=== PATIENT | female | born 1935 | race Caucasian/White ===

== ENCOUNTER 2024-04-08 10:14 | Outpatient (CLI) | payer MEDICARE, SELFPAY ==
[2024-04-08 10:51] LABS: Anion Gap 11 mmol/L (4-12); Blood Urea Nitrogen 27 mg/dL (7-17); Calcium 9.5 mg/dL (8.4-10.2); Carbon Dioxide 26 mmol/L (22-30); Chloride 102 mmol/L (98-107); Estimated Glomerular Filt Rate 47; Glucose 140 mg/dL (65-110); Potassium 4.7 mmol/L (3.4-5.0); Sodium 139 mmol/L (137-145)
[2024-04-08 11:00] LABS: INR 2.1; Partial Thromboplastin Time 33.2 Seconds (22.3-36.8); Prothrombin Time 23.5 Seconds (11.1-14.7)
== END 2024-04-08 10:15 | disposition home or self-care (01) ==
PROVIDERS: Anesthesiology; PCP Internal Medicine; Visit Provider Urology
DX: Z51.81 Encounter for therapeutic drug level monitoring (principal); E11.9 Type 2 diabetes mellitus without complications; Z79.899 Other long term (current) drug therapy
CPT/HCPCS: 36415; 80048; 85610; 85730

== ENCOUNTER 2024-04-10 00:50 | Day surgery (SDC) | payer MEDICARE, SELFPAY ==
--- NOTE | 2024-04-05 12:16 | PM.IMHP ---
H&P: HPI History of Present Illness Date/Time: 04/05/24 12:16 Chief Complaint: incontinence Narrative: mixed incontinence. ELISA 2/2 ISD prodominates Review of Systems Review of Systems: All systems reviewed & are unremarkable except as noted in HPI and below Exam Narrative: fixed urethra Assessment and Plan Assessment and plan (1) Intrinsic sphincter deficiency (ISD): Code(s): N36.42 - Intrinsic sphincter deficiency (ISD) Status: Acute Assessment and Plan: cysto/bulking agent
[2024-04-06 13:37] VITALS: BMI 40.0
--- NOTE | 2024-04-06 14:08 | PC.NURSE ---
Report to the Outpatient Waiting Room, entrance under the green pavilion located off [facility], at time __8:15AM on date ___04/10/24____. Planned Procedure Time: __10:15AM . Time changes happen often and if your time is changed the preop area will call you the afternoon before. - You and your visitor will be asked to self-screen and do not enter if you have any COVID symptoms. - A mask is optional within the hospital at this time. Patients may have clear liquids (water, carbonated beverages, clear teas, apple juice) until 3 hours prior to surgery with a maximum of 20 ounces. - No food from midnight until time of surgery. Take the following medications with a SIP of water the morning of surgery: ____ISORSORBIDE, LEVOTHYROXINE DO NOT STOP ANY OF YOUR OTHER PRESCRIPTION MEDICATIONS PRIOR TO SURGERY ?EXCEPT THE FOLLOWING Medications to discontinue per physician __HOLD COUMADIN & ASPIRIN 5 DAYS PRE-OP PER DR CRAIG(PER PATIENT) Date to take last dose____04/04/24 Please no make-up, nail burundian, hairspray, perfume, deodorant, or body powder the day of surgery. No jewelry (including any body piercings) or valuables the day of surgery, leave them at home. Please take a shower or bath the night before, or the morning of, surgery with an antibacterial soap. Wear comfortable, loose fitting clothing. - Jewelry must be removed prior to entering the operating room. Rings and piercings that are not removed may be cut off. - The hospital will not accept responsibility for valuables. - Please leave all valuables, including medications, at home the day of surgery. If you are going home after surgery, a licensed [place] driver must drive you home. - NO public transportation without another adult if you receive anesthesia. - We recommend that an adult stay with you for 24 hours following discharge. - We also recommend that you do not drive, make important decision, drink alcoholic beverages, or take any drugs that were not prescribed by your health care provider for at least 24 hours after your discharge time. Follow any additional instructions given to you from your surgeon. If you or anyone in your household have experienced Covid symptoms in the past week, please notify your surgeon or the nurse liaison at the phone number below for possible testing. Telephone instructions given to ____PATIENT and asked if any additional questions and then verbalized understanding. Patient advised to call surgeon office or pre surgery nurse liaison [phone] if any additional questions.
--- NOTE | 2024-04-09 12:10 | WPDANESEPPF ---
Anes - Initial Pre Proc Eval Procedure: Operation Date: 04/10/24 08:00 Proposed Procedures p Cystoscopy, Injection Bulking Agent - Juanito Koch MD Date/Time: 04/09/24 12:10 Surgeon: Juanito Koch MD Pre Op Diagnosis: overactive bladder, ID Patient Data Age: 89 Gender: F Height: 1.7 m Weight: 116 kg Allergies Allergy/AdvReac Type Severity Reaction Status Date / Time codeine AdvReac Headache, Verified 04/06/24 13:27 DIZZINESS Home Medications Medication Instructions Recorded Confirmed Type aspirin 81 mg tablet,delayed 81 mg PO DAILY 04/06/24 04/06/24 History release empagliflozin 10 mg tablet 10 mg PO DAILY 04/06/24 04/06/24 History (Jardiance) furosemide 40 mg tablet 40 mg PO QAM 04/06/24 04/06/24 History insulin regular human 100 unit/mL 10 unit subcut TID 04/06/24 04/06/24 History injection solution (Humulin R Regular U-100 Insulin) isosorbide mononitrate 30 mg 30 mg PO DAILY 04/06/24 04/06/24 History tablet,extended release 24 hr levothyroxine 150 mcg tablet 150 mcg PO QAM 04/06/24 04/06/24 History (Synthroid) metformin 500 mg tablet 500 mg PO BID 04/06/24 04/06/24 History potassium chloride 10 mEq 10 meq PO DAILY 04/06/24 04/06/24 History tablet,extended release(part/cryst) (Klor-Con M) rosuvastatin 10 mg tablet 10 mg PO DAILY 04/06/24 04/06/24 History solifenacin 10 mg tablet 10 mg PO DAILY 04/06/24 04/06/24 History valsartan 160 mg tablet 160 mg PO DAILY 04/06/24 04/06/24 History warfarin 1 mg tablet (Jantoven) 2 mg PO DAILY 04/06/24 04/06/24 History warfarin 3 mg tablet 3 mg PO DAILY 04/06/24 04/06/24 History Patient hx anesthesia problems: none Family hx anesthesia problems: none Results Review: All pre-operative results and documents have been reviewed as part of the pre-operative evaluation. [facility] Past Medical History Medical History (Updated 04/09/24 @ 12:11 by Luis Zapien DO) CAD (coronary artery disease) Diabetes type 2, controlled DVT (deep venous thrombosis) Hyperlipidemia Hypertension Hypothyroidism PVD (peripheral vascular disease) Surgical History Surgical History (Updated 04/09/24 @ 12:11 by Luis Zapien DO) History of coronary artery stent placement Social History Social History Smoking packs per day: 1 Smoking cigarettes per day: 20.0 Years smoked: 25 Smoking pack-years: 25.00 Smoking status: Former smoker Tobacco type: cigarettes Smoking end date: 02/16/95 Living arrangements: alone Spiritual care concerns: No Anes - Eval Final PreProcedure Day of Procedure 04/09/24 12:10 Patient weight: morbidly obese Heart: regular rate and rhythm Lungs: clear to auscultation Airway: Mallampati scale class II Neurological: alert and oriented Last oral intake: >/= 8 hours ASA classification: III Emergent: no Anesthetic plan: proceed Anesthesia type and monitoring: general GIVS and standard monitoring Results Review: All pre-operative results and documents have been reviewed as part of the pre-operative evaluation. Informed Consent: The patient's anesthetic plan and its attendant risks and benefits were discussed with the patient/family/POA. Questions were solicited and answers provided to the satisfaction of the patient/family/POA.
[2024-04-10 06:23] VITALS: BP 154/64; PULSE 40; RESP 20; TEMP 36.5; O2SAT 98
--- NOTE | 2024-04-10 07:16 | WPDHPUPDATE1 ---
History and Physical Update Update Date/Time: 04/10/24 07:16 History and Physical has been reviewed, including an updated exam of the patient. There are NO changes in the patient's condition. Risks, benefits, and alternatives have been discussed and questions answered. Patient agrees to proceed with procedure.
[2024-04-10 07:28] LABS: Glucose Point of Care 128 mg/dl (65-105)
[2024-04-10 07:32] LABS: INR 1.6; Prothrombin Time 19.2 Seconds (11.1-14.7)
--- NOTE | 2024-04-10 07:55 | SUR.PREOP ---
0750-Dr. Zapien aware of PT/INR is okay from anesthesia standpoiint. Rosalind Cox,RN keyboarding teacher aware to notify Dr. Koch. 0755-Drawing Frame Tender Aware to check with Dr. Koch re: PT/INR result.
--- NOTE | 2024-04-10 08:03 | SUR.PREOP ---
0800-discussed w/daughter, healthcare POA, pt has DNR but daughter wants to rescind for this procedure.
--- NOTE | 2024-04-10 08:22 | SUR.PREOP ---
0700-Dr. Zapien aware pt palpable pulse is 40 and regular and that daughter states is normal for pt.
--- NOTE | 2024-04-10 08:25 | W.PM.PROC2 ---
Procedure Note - Detailed Date of Procedure 04/10/24 Pre-op Diagnosis Intrinsic sphincter deficiency Post-op Diagnosis Same Procedure Performed Cystoscopy with suburethral injection of implant material Surgeon Juanito Koch MD Anesthesia MAC Indications This is a woman with mixed incontinence. She is most bothered by her intrinsic sphincter deficiency. She is not a candidate for a sling. She is here today for a bulking agent. She understands the risks of bleeding, infection, lack of efficacy, need for repeat procedures, urinary retention requiring catheterization. She also understands it will not help her overactive bladder symptoms. She agrees to proceed. Discussed with her daughter as well. Findings Open urethra consistent with intrinsic sphincter deficiency Description of Procedure She was correctly identified. Informed consent obtained. She brought the operating room. She was given monitored anesthesia care. She was placed in dorsal lithotomy position. She was prepped draped sterile fashion. Time-out performed. She was given appropriate perioperative antibiotics. Cystoscopy revealed mild trabeculations. She is degree of prolapse which is asymptomatic. Urethra was open consistent with intrinsic sphincter deficiency. I chose a site the mid urethra 2 cm distal to bladder neck. I injected bulking agent circumferentially. I used 1.5 syringes total. There was excellent bulking effect. There was no bleeding. Her bladder was left partially full. She was awakened transferred to PACU in stable condition Estimated Blood Loss 0 Drains No Packing No Pathology None sent Complications No immediate complications Condition Stable Disposition PACU
[2024-04-10] MEDS: LACTATED RINGERS 1,000 ML 30 ML IV CONT (08:27)
[2024-04-10 08:30] VITALS: BP 135/57; PULSE 56; RESP 14; O2SAT 96
[2024-04-10 09:00] VITALS: BP 166/62; PULSE 44; RESP 16
== END 2024-04-10 09:31 | disposition home or self-care (01) ==
PROVIDERS: Anesthesiology; PCP Internal Medicine; Visit Provider Urology
PROC: 3E0K8GC Introduction of Other Therapeutic Substance into Genitourinary Tract, Via Natural or Artificial Opening Endoscopic (ICD-10-PCS; CPT 51715; principal; 2024-04-10 08:00)
DX: N36.42 Intrinsic sphincter deficiency (ISD) (principal); N32.89 Other specified disorders of bladder; N39.46 Mixed incontinence; N32.81 Overactive bladder; I10 Essential (primary) hypertension; E78.5 Hyperlipidemia, unspecified; E03.9 Hypothyroidism, unspecified; E11.9 Type 2 diabetes mellitus without complications; I25.10 Atherosclerotic heart disease of native coronary artery without angina pectoris; I73.9 Peripheral vascular disease, unspecified; E66.01 Morbid (severe) obesity due to excess calories; Z68.41 Body mass index [BMI] 40.0-44.9, adult; Z79.82 Long term (current) use of aspirin; Z79.84 Long term (current) use of oral hypoglycemic drugs; Z79.4 Long term (current) use of insulin; Z79.01 Long term (current) use of anticoagulants; Z98.890 Other specified postprocedural states; Z95.5 Presence of coronary angioplasty implant and graft; Z87.891 Personal history of nicotine dependence; Z86.718 Personal history of other venous thrombosis and embolism
CPT/HCPCS: 51715; 36415; 82948; 85610; J2704; J3010; J7120; L8606